=== PATIENT | male | born 1965 | race Caucasian/White ===

== ENCOUNTER 2016-06-02 12:12 | Emergency (ER) | payer BC ==
[~2016-06-02] VITALS: Ht 180.3 cm; Wt 102.1 kg
[~2016-06-02 12:12] MED LIST: NO HOME MEDICATIONS; PANT40TA2 PO
--- OUTSIDE RECORDS SUMMARY | 2016-06-02 12:17 | XMS REPORT | Continuity of Care Document ---
Author Author [facility] Organization [facility] Address Unknown Phone Unavailable Care Team Providers Care Industrial Pipefitter Journeyman Name Role Phone CHYNA FINK MD PCP Insurance Providers Payer Name Policy Number Subscriber Name Relationship [facility] [id number] [address] 18 Self / Same As Patient Advance Directives Directive Response Recorded Date/Time Advance Directives No 10/07/15 7:32am Health Care Power of Well Tester No 10/07/15 7:32am Organ Donor Yes 10/07/15 7:32am Resuscitation Status Full Code 10/07/15 7:32am Problems No problem information available. Medications Current Home Medications Medication Dose Units Route Directions Days/Qty Instructions Start Date Pantoprazole Sodium 40 Mg 40 Mg Oral Daily 30 10/07/15 Past Home Medications Medication Directions Ordered Status [No Home Medications] , 11/14/10 Discontinued Social History Social History Problem Response Recorded Date/Time Recent Foreign Travel No 10/07/2015 7:29am Smoking Status Never a Smoker 10/07/2015 7:27am Query Response Start Date Stop Date Smoking Status Never a Smoker Hospital Discharge Instructions Patient Instructions Physician Instructions New, Converted or Re-Newed RX: Transmitted to Pharmacy Plan of Care/Instructions/FU: Follow up with Dr. Soliz in 2-3 weeks. Activity as Tolerated: Yes Discharge Diet: No Restrictions Care Plan Patient Instructions:: Follow up with Dr. Soliz in 2-3 weeks. Plan of Care Discharge Date 10/07/15 9:30am Instructions/Education Provided EGD-ESOPHAGOGASTRODUODENOSCOPY Prescriptions See Medication Section Functional Status No functional status results. Allergies, Adverse Reactions, Alerts No known allergies. Immunizations No immunization records. Vital Signs Acute Vital Signs Vital Response Date/Time Temperature (Fahrenheit) 96.0 degrees F (97.6 - 99.5) 10/07/2015 9:30am Temperature (Calculated Celsius) 35.44650 degrees C (36.4 - 37.5) 10/07/2015 9:30am Temperature Source Temporal 10/07/2015 9:30am Pulse Rate (adult) 66 bpm (60 - 90) 10/07/2015 9:30am Respiratory Rate 18 bpm (12 - 24) 10/07/2015 9:30am O2 Sat by Pulse Oximetry 96 % (88 - 100) 10/07/2015 9:30am Blood Pressure 111/78 mm Hg 10/07/2015 9:30am Pain Numeric Pain Scale 0-No Pain 10/07/2015 9:30am Pain Intensity 0 10/07/2015 9:25am Height (Feet) 6 feet 10/07/2015 7:32am Height (Inches) 0.00 inches 10/07/2015 7:32am Height (Calculated Centimeters) 182.978335 cm 10/07/2015 7:32am Weight (Pounds) 215 pounds 10/07/2015 7:32am Weight (Ounces) 0.0 oz 10/07/2015 7:32am Weight (Calculated Grams) 24495.361 gm 10/07/2015 7:32am Weight (Calculated Kilograms) 97.037324 kilograms 10/07/2015 7:32am Calculated BMI 29.2 10/07/2015 7:32am Results No known relevant diagnostic tests, laboratory data and/or discharge summary. Procedures Procedure Status Date Provider(s) Anesthesia for 30 minutes Active 10/07/15 ANANTH SOLIZ DO Esophagogastroduodenoscopy (EGD) with dilation Completed 10/07/15 ANANTH SOLIZ DO Encounters Encounter Location Arrival/Admit Date Discharge/Depart Date Attending Provider Departed [facility] 10/07/15 6:57am 9:30am ANANTH SOLIZ DO Departed Clinic [facility] 10/03/15 12:00pm 10/03/15 12: 20pm ANANTH SOLIZ DO
[2016-06-02 12:30] LABS: BASOPHILS # (AUTO) 0.1 10^3/uL (0.0-0.1); BASOPHILS % (AUTO) 1 % (0-10); EOSINOPHILS # (AUTO) 0.6 10^3/uL (0.0-0.3); EOSINOPHILS % (AUTO) 7 % (0-10); LYMPHOCYTES # (AUTO) 2.5 X 10^3 (1.0-4.0); LYMPHOCYTES % (AUTO) 30 % (12-44); MEAN CORPUSCULAR HEMOGLOBIN 32 PG (25-34); MEAN CORPUSCULAR HGB CONC 37 G/DL (32-36); MEAN CORPUSCULAR VOLUME 87 FL (80-99); MEAN PLATELET VOLUME 10.4 FL (7.4-10.4); MONOCYTES # (AUTO) 0.6 X 10^3 (0.0-1.0); MONOCYTES % (AUTO) 7 % (0-12); NEUTROPHILS # (AUTO) 4.6 X 10^3 (1.8-7.8); NEUTROPHILS % (AUTO) 56 % (42-75); PLATELET COUNT 191 10^3/uL (130-400); RED BLOOD COUNT 5.14 10^6/uL (4.35-5.85); RED CELL DISTRIBUTION WIDTH 12.8 % (10.0-14.5); WHITE BLOOD COUNT 8.2 10^3/uL (4.3-11.0)
[2016-06-02] MEDS ORDERED: RX-NITROGLYCERIN 0.4 MG TAB BTL 25'S SL PRN (12:30)
[2016-06-02] MEDS ORDERED: ASPIRIN 81 MG CHEW (CHILDREN'S ASA) PO ONE (12:30)
[2016-06-02] MEDS ORDERED: KETOROLAC 30 MG/ML VIAL IVP ONE (12:45)
[2016-06-02 12:47] LABS: PROTHROMBIN TIME PATIENT 13.2 SEC (12.2-14.7)
[2016-06-02 12:52] LABS: ALANINE AMINOTRANSFERASE 39 U/L (0-55); ALBUMIN 4.3 G/DL (3.2-4.5); AMYLASE 41 U/L (25-125); ANION GAP 9 MMOL/L (5-14); ASPARTATE AMINO TRANSFERASE 22 U/L (5-34); BLOOD UREA NITROGEN 13 MG/DL (7-18); BUN/CREATININE RATIO 13; CALCIUM 8.9 MG/DL (8.5-10.1); CARBON DIOXIDE 23 MMOL/L (21-32); CHLORIDE 110 MMOL/L (98-107); CREATINE KINASE 156 U/L (30-200); CREATININE SERUM 0.98 MG/DL (0.60-1.30); GFR ESTIMATED > 60; GLUCOSE 74 MG/DL (70-105); LIPASE 25 U/L (8-78); POTASSIUM 3.5 MMOL/L (3.6-5.0); SODIUM 142 MMOL/L (135-145); TOTAL PROTEIN 7.2 G/DL (6.4-8.2)
--- NOTE | 2016-06-02 12:58 | Diagnostic Imaging Report ---
EXAMINATION: Portable erect AP chest at 1225 hours. INDICATION: Chest pain. COMPARISON: There are no prior studies available for comparison. FINDINGS: The heart size is mildly enlarged. The lungs are clear. There is no evidence for failure, pneumonia, or pleural effusion. The mediastinum is not widened. The osseous structures are intact. IMPRESSION: There is mild cardiomegaly but there is no evidence for an acute cardiopulmonary abnormality. Dictated by: Dictated on workstation # [id number]
[2016-06-02 12:59] LABS: TROPONIN I < 0.30 NG/ML (<0.30)
--- NOTE | 2016-06-02 13:01 | ED Chest Pain ---
General Chief Complaint: Chest Pain Stated Complaint: CHEST PAIN Source: patient History of Present Illness Time seen by provider: 12:20 Initial Comments PT ARRIVES VIA POV FROM WORK--WORKS [employer]FFIC [employer]ER C/O LEFT MID AND LATERAL CHEST PAIN SINCE YESTERDAY AFTERNOON--THINKS PAIN COMES AND GOES PAIN IS WORSE /MOSTLY WITH MOVEMENT OF LEFT ARM NO RADIATION OF PAIN NO SHORTNESS OF BREATH NO SWEATS NO SWELLING IN LEGS/ FEET OR PAIN IN CALVES NO NAUSEA/VOMITING NO DIZZINESS NO PALPITATIONS NO COUGH, FEVER OR RECENT ILLNESS NO PRIOR EPISODES OF SIMILAR NO INJURY, BUT PT STATES 3-4 DAYS AGO, HE CARRIED A WATER HEATER UPSTAIRS FROM BASEMENT, AND WAS AT LEAST HALF FULL OF WATER. PCP: DR. FINK Allergies and Home Medications Allergies Coded Allergies: No Known Drug Allergies (Unverified , 10/03/15) Home Medications Pantoprazole Sodium 40 Mg Tablet. #30 40 MG PO DAILY Prescribed by: IOANA ABRAHAM on 10/07/15 0843 Tramadol HCl 50 Mg Tablet #20 50 MG PO Q4H Prescribed by: ANDREA CABALLERO on 06/02/16 1315 Review of Systems Constitutional: no symptoms reported EENTM: No Symptoms Reported Respiratory: No Symptoms Reported Cardiovascular: See HPI Chest PainDenies Edema, Denies Irregular Heart Rate, Denies Lightheadedness, Denies Palpitations, Denies Syncope Gastrointestinal: No Symptoms Reported Genitourinary: No Symptoms Reported Musculoskeletal: no symptoms reported Skin: no symptoms reported Psychiatric/Neurological: No Symptoms Reported Endocrine: No Symptoms Reported Hematologic/Lymphatic: No Symptoms Reported Past Fmupxir-Zpckxv-Olorgy Hx Patient Social History Alcohol Use: Denies Use Recreational Drug Use: No Smoking Status: Never a Smoker 2nd Hand Smoke Exposure: No Recent Hopitalizations: No Surgeries HX Surgeries: Yes (ESOPHAGEAL SURGERY, HIATAL HERNIA REPAIRED-LAP LICO FUNDOPLICATION; EGD'S) Surgeries: Abdominal Respiratory Hx Respiratory Disorders: No Cardiovascular Hx Cardiac Disorders: No Neurological Hx Neurological Disorders: No Reproductive System Hx Reproductive Disorders: No Genitourinary Hx Genitourinary Disorders: No Gastrointestinal Hx Gastrointestinal Disorders: Yes Gastrointestinal Disorders: Gastroesophageal Reflux, Lee's Esophagus, Hiatal Hernia Musculoskeletal Hx Musculoskeletal Disorders: No Endocrine Hx Endocrine Disorders: No HEENT HX ENT Disorders: No Cancer Hx Cancer: No Psychosocial Hx Psychiatric Problems: No Integumentary HX Skin/Integumentary Disorder: No Blood Transfusions Hx Blood Disorders: No Physical Exam Vital Signs Vital Sign - Last 12Hours Capillary Refill : Less Than 3 Seconds General Appearance: No Apparent Distress HEENT: PERRL/EOMI Normal ENT Inspection Neck: Full Range of Motion Normal Inspection Non Tender Supple Respiratory: Normal Breath Sounds No Accessory Muscle Use No Respiratory Distress Other ( TENDERNESS TO LEFT MID AND LATERAL CHEST) Cardiovascular: Regular Rate, Rhythm No Edema No JVD No Murmur Gastrointestinal: Normal Bowel Sounds No Organomegaly No Pulsatile Mass Non Tender Soft Extremity: Normal Capillary Refill Normal Inspection Normal Range of Motion Non Tender No Calf Tenderness No Pedal Edema Neurologic/Psychiatric: Alert Oriented x3 No Motor/Sensory Deficits Normal Mood/Affect mobile application tester II-XII Norm as Tested Skin: Normal Color Warm/Dry Progress/Results/Core Measures Results/Orders Lab Results Laboratory Tests Test 06/02/16 12:20 Range/Units Activated Partial Thromboplast Time 25 24-35 SEC Alanine Aminotransferase (ALT/SGPT) 39 0-55 U/L Albumin 4.3 3.2-4.5 G/DL Alkaline Phosphatase 64 40-136 U/L Amylase Level 41 25-125 U/L Anion Gap 9 5-14 MMOL/L Aspartate Amino Transf (AST/SGOT) 22 5-34 U/L B-Type Natriuretic Peptide < 10.0 <100.0 PG/ML BUN/Creatinine Ratio 13 Basophils # (Auto) 0.1 0.0-0.1 10^3/uL Basophils (%) (Auto) 1 0-10 % Blood Urea Nitrogen 13 7-18 MG/DL Calcium Level 8.9 8.5-10.1 MG/DL Carbon Dioxide Level 23 21-32 MMOL/L Chloride Level 110 H 98-107 MMOL/L Creatine Kinase MB 1.5 <6.6 NG/ML Creatinine 0.98 0.60-1.30 MG/DL Eosinophils # (Auto) 0.6 H 0.0-0.3 10^3/uL Eosinophils (%) (Auto) 7 0-10 % Estimat Glomerular Filtration Rate > 60 Glucose Level 74 70-105 MG/DL Hematocrit 45 40-54 % Hemoglobin 16.5 13.3-17.7 G/DL INR Comment 1.0 0.8-1.4 Lipase 25 8-78 U/L Lymphocytes # (Auto) 2.5 1.0-4.0 X 10^3 Lymphocytes (%) (Auto) 30 12-44 % Mean Corpuscular Hemoglobin 32 25-34 PG Mean Corpuscular Hemoglobin Concent 37 H 32-36 G/DL Mean Corpuscular Volume 87 80-99 FL Mean Platelet Volume 10.4 7.4-10.4 FL Monocytes # (Auto) 0.6 0.0-1.0 X 10^3 Monocytes (%) (Auto) 7 0-12 % Neutrophils # (Auto) 4.6 1.8-7.8 X 10^3 Neutrophils (%) (Auto) 56 42-75 % Platelet Count 191 130-400 10^3/uL Potassium Level 3.5 L 3.6-5.0 MMOL/L Prothrombin Time 13.2 12.2-14.7 SEC Red Blood Count 5.14 4.35-5.85 10^6/uL Red Cell Distribution Width 12.8 10.0-14.5 % Sodium Level 142 135-145 MMOL/L Total Bilirubin 1.0 0.1-1.0 MG/DL Total Creatine Kinase 156 30-200 U/L Total Protein 7.2 6.4-8.2 G/DL Troponin I < 0.30 <0.30 NG/ML White Blood Count 8.2 4.3-11.0 10^3/uL My Orders Orders-ANDREA CABALLERO DO Amylase (06/02/16 12:20) Cbc With Automated Diff (06/02/16 12:20) Comprehensive Metabolic Panel (06/02/16 12:20) Creatine Kinase (06/02/16 12:20) Creatine Kinase Mb (06/02/16 12:20) Lipase (06/02/16 12:20) Partial Thromboplastin Time (06/02/16 12:20) Protime With Inr (06/02/16 12:20) Troponin I (06/02/16 12:20) Chest 1 View, Ap/Pa Only (06/02/16 12:20) O2 (06/02/16 12:20) Ekg Tracing (06/02/16 12:20) Aspirin Chewable Tablet (Baby Aspirin Ch (06/02/16 12:30) Rx-Nitroglycerin Sl Tabs (Rx-Nitrostat S (06/02/16 12:30) BNP (06/02/16 12:20) Monitor-Rhythm Ecg Trace Only (06/02/16 12:20) Ketorolac Injection (Toradol Injection) (06/02/16 12:45) Medications Given in ED Current Medications Medications Dose Ordered Sig/Bridgett Route Start Time Stop Time Status Last Admin Dose Admin Aspirin 324 mg ONCE ONCE PO 06/02/16 12:30 06/02/16 12:31 DC 06/02/16 12:30 324 MG Ketorolac Tromethamine 30 mg ONCE ONCE IVP 06/02/16 12:45 06/02/16 12:46 DC 06/02/16 12:44 30 MG Nitroglycerin 0.4 mg UD PRN SL 06/02/16 12:30 06/02/16 12:30 0.4 MG Vital Signs/I&O Vital Sign - Last 12Hours 06/02/16 06/02/16 06/02/16 06/02/16 12:15 12:15 12:15 12:34 Temp 98.2 Pulse 77 Resp 19 B/P 148/105 Pulse Ox 91 96 94 O2 Delivery Room Air Nasal Cannula Nasal Cannula Nasal Cannula O2 Flow Rate 2 2 2 2 Progress Note : Progress Note NO RELIEF WITH NTG COMPLETE RELIEF WITH TORADOL ECG Initial ECG Impression Time: 12:17 Initial ECG Rate: 75 Initial ECG Rhythm: Normal Sinus Initial ECG Impression: Normal Initial ECG Comparisson: No Previous ECG Available Diagnostic Imaging Comments CXR--MILD CARDIOMEGALY, NO ACUTE PROCESS--PER RADIOLOGIST REPORT @ 1302 Reviewed: Reviewed by Me Departure Impression Impression: Primary Impression: Left-sided chest wall pain Disposition: 01 HOME, SELF-CARE Condition: Improved Departure-Patient Inst. Referrals: CHYNA FINK MD (PCP/Family) Primary Care Physician Patient Instructions: Chest Pain That Is Not Caused by the Heart (DC) Add. Discharge Instructions: ALTERNATE ICE AND HEAT TO SORE AREA AT 20 MINUTE INTERVALS FOLLOW UP WITH DR. FINK IN 2-3 DAYS IF NO BETTER RETURN TO ER IF WORSE All discharge instructions reviewed with patient and/or family. Voiced understanding. Scripts Tramadol HCl (Ultram)50 Mg Dcpttf37 Mg PO Q4H #20 TAB Prov:ANDREA CABALLERO DO 06/02/16 ANDREA CABALLERO DO Jun 02, 2016 13:01
[2016-06-02] MEDS ORDERED: TRAM-42 PO (13:15)
[2016-06-02 13:21] VITALS: BP 123/90
== END 2016-06-02 13:21 | disposition home or self-care (01) ==
LOC: EDUNIT# 12:12 → ER 12:13
DX: R07.89 Other chest pain (principal)
CPT/HCPCS: 36415; 71010; 80053; 82150; 82550; 82553; 83690; 83880; 84484; 85025; 85610; 85730; 93005; 93041; 96374

== ENCOUNTER 2016-12-27 09:00 | Outpatient (CLI) | payer BC ==
[~2016-12-27] VITALS: Ht 180.3 cm; Wt 102.1 kg
[~2016-12-27 09:00] MED LIST changes: +TRAM-42 PO
[2016-12-27] MEDS ORDERED: PANT40TA2 PO (09:04)
== END 2016-12-27 09:54 ==
LOC: PREOP 09:00
PROVIDERS: ATTEND Surgery
DX: Z01.818 Encounter for other preprocedural examination (principal); K21.9 Gastro-esophageal reflux disease without esophagitis

== ENCOUNTER 2016-12-28 07:13 | Day surgery (SDC) | payer BC ==
[~2016-12-28] VITALS: Ht 180.3 cm; Wt 102.1 kg
[2016-12-28] MEDS ORDERED: LACTATED RINGERS 1,000 ML IV ONE (07:30)
[2016-12-28] MEDS ORDERED: LACTATED RINGERS 1,000 ML IV STA (07:34)
[2016-12-28] MEDS ORDERED: proPOfol 200 MG/20 ML (DIPRIVAN) VIAL IV ONE (07:39)
[2016-12-28] MEDS ORDERED: MIDAZOLAM 2 MG/2 ML (VERSED) VIAL ONE (07:40)
[2016-12-28] MEDS ORDERED: HURRICAINE EXT TUBE (BENZOCAINE) XX PRN (07:45)
[2016-12-28 07:50] VITALS: BP 134/95
[2016-12-28] MEDS ORDERED: HURRICAINE EXT TUBE (BENZOCAINE) ONE (08:00)
--- NOTE | 2016-12-28 08:25 | Progress Note-Post Operative ---
Post-Operative Progess Note Surgeon (s)/Copy Manager (s) Surgeon ANANTH SOLIZ DO Copy Manager: na Pre-Operative Diagnosis gerd, hx ceballos's Post-Operative Diagnosis short segment ceballos's, slight gastritis Procedure & Operative Findings Date of Procedure 12/28/16 Procedure Performed/Findings egd c biopsies Anesthesia Type per mda Estimated Blood Loss Estimated blood loss (mL): scant Specimens/Packing Specimens Removed antrum, distal esophagus ANANTH SOLIZ DO Dec 28, 2016 08:25
--- NOTE | 2016-12-28 08:27 | Discharge Inst-Simple/Standard ---
Discharge Inst-Standard Patient Instructions/Follow Up Plan of Care/Instructions/FU: 2 weeks Andrea Activity as Tolerated: Yes Discharge Diet: Regular Diet ANANTH SOLIZ DO Dec 28, 2016 08:27
[2016-12-28 09:05] VITALS: BP 139/85
[2016-12-28 09:17] VITALS: BP 139/85
--- NOTE | 2016-12-28 10:26 | OPERATIVE REPORT ---
DATE OF SERVICE: 12/28/2016 PREOPERATIVE DIAGNOSIS: Gastroesophageal reflux disease, history of Lee's. POSTOPERATIVE DIAGNOSIS: Short segment Lee's, slight gastritis. SURGEON: Ananth Mendez DO ANESTHESIA: Per MDA. PROCEDURE: EGD with biopsies. INDICATIONS: The patient is a 51-year-old male with gastroesophageal reflux disease. He has history of Lee's esophagus. He understands risks and benefits of procedure and wished to proceed with procedure. Consent was signed in the chart. PROCEDURE: The patient was taken to the endoscopy suite, placed in left lateral recumbent position. Timeout was performed. Scope was inserted in mouth, down the esophagus, stomach and into the duodenum without difficulty. There were no polyps, mass or ulcerations within the duodenum. The scope was slowly retracted back into the stomach where he had some slight erythematous changes in the antrum. Biopsy of the antrum was obtained. The scope was then retroflexed. No polyps, masses or ulcerations. The patient had previous fundoplication, which appears to be slightly looser than normal. Scope was returned to its normal position, slowly withdrawn back into the distal esophagus. There appears to be short segment of Lee's. Multiple biopsies were obtained from this area and scope was then slowly retracted until completely removed, noting no other pathology. The patient tolerated procedure well without any complications and taken to recovery room in stable condition. RECOMMENDATIONS: The patient will continue on Protonix. Would await biopsy results. Would likely need repeat EGD in 12-24 months for reevaluation. Job ID: [id number] DocumentID: [id number] Dictated Date: 12/28/2016 08:29:30 Trauma Coordinator Date: 12/28/2016 10:26:12 Dictated By: ANANTH MENDEZ DO [facility]
== END 2016-12-28 09:18 | disposition home or self-care (01) ==
LOC: ENDO 07:13
PROVIDERS: ATTEND Surgery
DX: K29.70 Gastritis, unspecified, without bleeding; K21.9 Gastro-esophageal reflux disease without esophagitis; K22.70 Barrett's esophagus without dysplasia
CPT/HCPCS: 88305

== ENCOUNTER → 2017-05-20 | Outpatient (CLI) | payer BC ==
--- NOTE | 2017-05-20 09:25 | Diagnostic Imaging Report ---
PROCEDURE: US abdomen complete. TECHNIQUE: Multiple real-time grayscale images were obtained over the abdomen in various projections. INDICATION: Abdominal distention COMPARISON: None. FINDINGS: Mild fatty infiltration throughout the liver is present. There is no mass or intrahepatic biliary duct dilatation. Common bile duct is normal at 6 mm. 2 gallbladder polyps are present. There is no cholelithiasis or cholecystitis. Pancreas is nonvisualized. There is no splenomegaly. The IVC, aorta and bilateral kidneys are unremarkable. There is no mass or hydronephrosis. No ascites. IMPRESSION: 1. Fatty liver. 2. Gallbladder wall polyps. 3. No ascites identified. Dictated by: Dictated on workstation # [id number]
[2017-05-20 09:35] LABS: BASOPHILS # (AUTO) 0.1 10^3/uL (0.0-0.1); BASOPHILS % (AUTO) 1 % (0-10); EOSINOPHILS # (AUTO) 0.7 10^3/uL (0.0-0.3); EOSINOPHILS % (AUTO) 9 % (0-10); HEMATOCRIT 46 % (40-54); HEMOGLOBIN 16.7 G/DL (13.3-17.7); LYMPHOCYTES # (AUTO) 2.3 X 10^3 (1.0-4.0); LYMPHOCYTES % (AUTO) 28 % (12-44); MEAN CORPUSCULAR HEMOGLOBIN 32 PG (25-34); MEAN CORPUSCULAR HGB CONC 36 G/DL (32-36); MEAN CORPUSCULAR VOLUME 87 FL (80-99); MONOCYTES # (AUTO) 0.6 X 10^3 (0.0-1.0); MONOCYTES % (AUTO) 7 % (0-12); NEUTROPHILS # (AUTO) 4.6 X 10^3 (1.8-7.8); NEUTROPHILS % (AUTO) 56 % (42-75); PLATELET COUNT 209 10^3/uL (130-400); RED CELL DISTRIBUTION WIDTH 12.8 % (10.0-14.5); WHITE BLOOD COUNT 8.2 10^3/uL (4.3-11.0)
[2017-05-20 09:55] LABS: ALANINE AMINOTRANSFERASE 55 U/L (0-55); ALBUMIN 4.2 GM/DL (3.2-4.5); ALKALINE PHOSPHATASE 76 U/L (40-136); BUN/CREATININE RATIO 14; CALCIUM 9.5 MG/DL (8.5-10.1); CARBON DIOXIDE 26 MMOL/L (21-32); CHLORIDE 108 MMOL/L (98-107); CREATININE SERUM 1.19 MG/DL (0.60-1.30); GFR ESTIMATED > 60; GLUCOSE 100 MG/DL (70-105); POTASSIUM 3.9 MMOL/L (3.6-5.0); SODIUM 144 MMOL/L (135-145); TOTAL PROTEIN 7.8 GM/DL (6.4-8.2)
[2017-05-20 09:57] LABS: ERYTHROCYTE SEDIMENTATION RATE 1 MM/HR (0-15)
== END ==
LOC: RAD 08:11
PROVIDERS: ATTEND Nurse Practitioner Family
DX: K76.0 Fatty (change of) liver, not elsewhere classified (principal); K82.4 Cholesterolosis of gallbladder
CPT/HCPCS: 36415; 76700; 80053; 85025; 85652

== ENCOUNTER 2019-02-20 05:51 | Outpatient (CLI) | payer BC ==
[~2019-02-20] VITALS: Ht 182 cm; Wt 104.5 kg
[2019-02-20] MEDS ORDERED: AMLO5TAB9 PO (15:32)
[2019-02-20] MEDS ORDERED: LISI-552 PO (15:32)
== END 2019-02-20 15:37 | disposition home or self-care (01) ==
LOC: PREOP 05:51
PROVIDERS: ATTEND Surgery
DX: Z01.818 Encounter for other preprocedural examination (principal)

== ENCOUNTER 2019-02-27 10:25 | Day surgery (SDC) | payer BC ==
[~2019-02-27] VITALS: Ht 180.3 cm; Wt 104.5 kg
[~2019-02-27 10:25] MED LIST changes: +AMLO5TAB9 PO; +LISI-552 PO
[2019-02-27] MEDS ORDERED: LACTATED RINGERS 1,000 ML IV ONE (10:32)
[2019-02-27] MEDS ORDERED: MIDAZOLAM 2 MG/2 ML (VERSED) VIAL ONE (10:44)
[2019-02-27] MEDS ORDERED: PROPOFOL INJECTION 50 ML IV ONE (10:44)
[2019-02-27] MEDS ORDERED: LACTATED RINGERS 1,000 ML IV STA (10:54)
[2019-02-27 10:59] VITALS: BP 140/99
[2019-02-27 11:00] VITALS: BP 133/98
[2019-02-27] MEDS ORDERED: HURRICAINE EXT TUBE (BENZOCAINE) XX PRN (11:00)
--- NOTE | 2019-02-27 11:08 | Progress Note-Pre Operative ---
Pre-Operative Progress Note H&P Reviewed The H&P was reviewed, patient examined and no changes noted. Date Seen by Provider: Feb 27, 2019 Time Seen by Provider: 11:07 Date H&P Reviewed: Feb 27, 2019 Time H&P Reviewed: 11:07 Pre-Operative Diagnosis: history of ceballos's, screening colonoscopy ANANTH SOLIZ DO Feb 27, 2019 11:08 POS
[2019-02-27 13:45] VITALS: BP_SYST 102; BP_SYST 75; BP_DIAS 50; BP_DIAS 55
--- NOTE | 2019-02-27 13:49 | Progress Note-Post Operative ---
Post-Operative Progess Note Surgeon (s)/Refractive Surgeon (s) Surgeon ANANTH SOLIZ DO Refractive Surgeon: NA Pre-Operative Diagnosis history of ceballos's, screening colonoscopy Post-Operative Diagnosis Hiatal Hernia,Barretts, Colon polyps Procedure & Operative Findings Date of Procedure 02/27/19 Procedure Performed/Findings EGD with biopsy, Colonoscopy with hot biopsy polypectomy x4 Anesthesia Type per BLEACH CHLORINATOR Estimated Blood Loss Estimated blood loss (mL): None Specimens/Packing Specimens Removed Biopsy of the Antrum and GE junction x 4 Transverse colon polyp Sigmoid Colon Polyp ANANTH SOLIZ DO Feb 27, 2019 13:49 POS
[2019-02-27 13:50] VITALS: BP 102/55
--- NOTE | 2019-02-27 13:55 | Discharge Inst-Simple/Standard ---
Discharge Inst-Standard Discharge Medications New, Converted or Re-Newed RX: RX on Chart Patient Instructions/Follow Up Plan of Care/Instructions/FU: 2 weeks Andrea Activity as Tolerated: Yes Discharge Diet: Regular Diet ANANTH SOLIZ DO Feb 27, 2019 13:55 POS
[2019-02-27 14:15] VITALS: BP 104/84
--- NOTE | 2019-02-27 14:20 | Anesthesia-General Post-Op ---
MAC Patient Condition Mental Status/LOC: Same as Preop Cardiovascular: Satisfactory Nausea/Vomiting: Absent Respiratory: Satisfactory Pain: Controlled Complications: Absent Post Op Complications Complications None Follow Up Care/Instructions Patient Instructions None needed. Anesthesiology Discharge Order Discharge Order Patient is doing well, no complaints, stable vital signs, no apparent adverse anesthesia problems. No complications reported per nursing. GAURAV CARSON CRNA Feb 27, 2019 14:19 POS
[2019-02-27 14:27] VITALS: BP 104/84
--- NOTE | 2019-02-27 22:11 | OPERATIVE REPORT ---
DATE OF SERVICE: 02/27/2019 PREOPERATIVE DIAGNOSES: History of Lee's and screening colonoscopy. POSTOPERATIVE DIAGNOSES: Lee's esophagus, small hiatal hernia, colon polyps. PROCEDURE: EGD with biopsies, colonoscopy with hot biopsy polypectomy x4. SURGEON: Ananth Mendez DO ANESTHESIA: Per SODIUM CHLORITE OPERATOR. ESTIMATED BLOOD LOSS: None. COMPLICATIONS: None. INDICATIONS: The patient is a 53-year-old male with history of Lee's, needing EGD for surveillance and also needing screening colonoscopy. He understands risks and benefits of procedure and wished to proceed with procedure. Consent was signed in the chart. DESCRIPTION OF PROCEDURE: The patient was taken to the endoscopy suite, placed in left lateral recumbent position. Timeout was performed. Scope was inserted in mouth, down the esophagus, stomach and into the duodenum without difficulty. There were no polyps, mass or ulcerations within the duodenum. Scope was slowly retracted back into the stomach where it was further insufflated. No polyps, masses or ulcerations. No significant erythematous changes. Biopsy of the antrum was obtained. Scope was retroflexed noting a small hiatal hernia, no other pathology. Scope was returned to its normal position, slowly withdrawn to the , which had some slight changes consistent with Lee's. Multiple biopsies in 4 quadrants were obtained and the scope was then slowly retracted back until completely removed noting no other pathology. Digital rectal exam was performed. There were no palpable polyps, masses or ulcerations. Scope was inserted in the rectum, advanced all the way to cecum with minimal difficulty. There were no polyps, mass or ulceration in the cecum, ascending colon. In the transverse colon, two small polyps were present next to each other, which hot biopsy polypectomy was performed. Scope was then continuously retracted back. No other polyps, masses or ulcerations within the transverse, descending colon and sigmoid colon. Two other small polyps were present next to each other, which hot biopsy polypectomy was performed. Scope was then slowly retracted back into the rectum, where it was also retroflexed noting no other pathology. The patient tolerated procedure well without any complications, was taken to recovery room in stable condition. RECOMMENDATIONS: The patient is to continue management for his reflux. We will discuss options in her next visit and await biopsy results. The patient with colon polyps will need repeat colonoscopy in 5 years unless any changes before then, he should be reevaluated at that time. The patient is currently on Protonix, we will continue to maintain on this. The patient is to follow up in 2 to 3 weeks. Job ID: [id number] DocumentID: [id number] Dictated Date: 02/27/2019 13:49:54 Incident Response Analyst Date: 02/27/2019 22:10:03 Dictated By: ANANTH MENDEZ DO
== END 2019-02-27 14:30 | disposition home or self-care (01) ==
LOC: ENDO 10:25
PROVIDERS: ATTEND Surgery
DX: Z12.11 Encounter for screening for malignant neoplasm of colon (principal); D12.5 Benign neoplasm of sigmoid colon; K63.5 Polyp of colon; K63.89 Other specified diseases of intestine; K22.70 Barrett's esophagus without dysplasia; K44.9 Diaphragmatic hernia without obstruction or gangrene; K42.9 Umbilical hernia without obstruction or gangrene; K82.4 Cholesterolosis of gallbladder; K21.0 Gastro-esophageal reflux disease with esophagitis; I10 Essential (primary) hypertension; E66.9 Obesity, unspecified; Z68.32 Body mass index [BMI] 32.0-32.9, adult; Z79.899 Other long term (current) drug therapy

== ENCOUNTER → 2019-03-20 | Outpatient (CLI) | payer BC | LOC: CARD 09:12 | PROVIDERS: ATTEND Internal Medicine Cardiovascular Disease | DX: I10 Essential (primary) hypertension (principal); R06.02 Shortness of breath; R00.1 Bradycardia, unspecified | CPT/HCPCS: 93306; 93351 ==